=== PATIENT | female | born 1930 | race Caucasian/White ===

== ENCOUNTER 2016-08-08 10:26 | Emergency (ER) | payer MEDICARE, OTHER ==
[~2016-08-08] VITALS: Wt 64.0 kg
[~2016-08-08 10:26] MED LIST: AMLO-147 PO; ASPI-535 PO; CRES10 PO; FURO40TA4 PO; GLU5XL PO; LINA5TAB PO; LOSA100T7 PO; OMEP20CA16 PO; SPIR100T31 PO
[2016-08-08] MEDS ORDERED: ACETAMINOPHEN 500 MG TAB PO STA (10:54)
[2016-08-08] MEDS ORDERED: METO25TA7 PO (11:59)
[2016-08-08] MEDS ORDERED: HYDR12.58 PO (11:59)
[2016-08-08] MEDS ORDERED: METF1000 PO (11:59)
[2016-08-08] MEDS ORDERED: GABA300C16 PO (12:00)
--- NOTE | 2016-08-08 12:47 | RADRPT ---
PROCEDURE: Chest x-ray CLINICAL INDICATION: Fall with pain TECHNIQUE: Chest single view COMPARISON: 02/22/2014 FINDINGS: As before there is left chest dual lead pacemaker. Heart is normal in size. Stable atherosclerotic aortic calcification. The pulmonary vessels are normal in caliber. The lungs are clear. The cost ophrenic angles are sharp. The visualized bony thorax is unremarkable. IMPRESSION: No acute cardiopulmonary disease. No evidence of pneumothorax Atherosclerotic aortic calcification Pacemaker RPTAT: HH .Timothy Saez MD, Date Time Electronically viewed and signed by .Timothy Saez MD, on 08/08/2016 12:47 .W/
--- NOTE | 2016-08-08 12:48 | RADRPT ---
PROCEDURE: XR Ribs. CLINICAL INDICATION: Pain TECHNIQUE: Multiple oblique views of the left ribs were obtained. The images were reviewed on a [employer] workstation. COMPARISON: None. FINDINGS: Rib series demonstrates no displaced rib fracture. No pneumothorax is seen. The underlying lung is clear. IMPRESSION: No displaced rib fracture identified RPTAT: HH .Timothy Saez MD, Date Time Electronically viewed and signed by .Timothy Saez MD, MD on 08/08/2016 12:48 .W/
[2016-08-08 13:13] VITALS: BP 155/68; PULSE 68; RESP 18
--- NOTE | 2016-08-08 13:50 | ERD ---
ER Documentation Chief Complaint Date/Time DATE: 08/08/16 TIME: 13:47 Chief Complaint LEFT RIB PAIN S/P GLF LAST NIGHT, NO KO HPI 86-year-old female presenting with left-sided rib pain. She had a fall last night after losing balance due to pain in her ankle. She denies any associated dizziness, nausea, vomiting, chest pain or shortness of breath. She had no head trauma or loss of consciousness. She has not had any difficulty breathing. Her pain is on the left side, worse with taking a deep breath, better when she does not move. It is a 6 out of 10, nonradiating. She denies any other injuries or pain. She has not taken anything for the pain at home. ROS All systems reviewed and are negative except as per history of present illness. Medications Home Meds Reported Medications Gabapentin* (Gabapentin*) 300 Mg Capsule, 300 MG PO BID, #60 CAP 08/08/16 Metoprolol Succinate* (Toprol XL*) 25 Mg Tab.sr.24h, 25 MG PO DAILY, #30 TAB 08/08/16 Metformin Hcl* (Metformin Hcl*) 1,000 Mg Tablet, 1000 MG PO WITH BREAKFAST DINNE , #30 TAB 08/08/16 Hydrochlorothiazide* (Hydrochlorothiazide*) 12.5 Mg Tablet, 12.5 MG PO DAILY, # 30 TAB 08/08/16 Aspirin Ec (Aspir 81) 81 Mg Tablet.dr, 81 MG PO DAILY, TAB 02/21/14 Amlodipine Besylate* (Amlodipine Besylate*) 10 Mg Tablet, 10 MG PO DAILY, TAB 02/21/14 Losartan Potassium* (Losartan Potassium*) 100 Mg Tablet, 100 MG PO DAILY, TAB 02/21/14 Linagliptin (TRADJENTA) 5 Mg Tablet, 5 MG PO AC BREAKFAST 02/21/14 Glipizide XL* (Glipizide XL*) 5 Mg Tabsr, 5 MG PO DAILY, TAB 02/21/14 Discontinued Reported Medications Rosuvastatin Calcium* (Crestor*) 10 Mg Tablet, 10 MG PO HS, TAB 02/21/14 Omeprazole* (Omeprazole*) 20 Mg Capsule.dr, 20 MG PO DAILY, CAP 02/21/14 Spironolactone* (Spironolactone*) 100 Mg Tablet, 100 MG PO DAILY, TAB 02/21/14 Furosemide* (Furosemide*) 40 Mg Tablet, 40 MG PO DAILY, TAB 02/21/14 Allergies Allergies: Coded Allergies: No Known Allergies (Verified Allergy, Unknown, 08/08/16) PMhx/Soc History of Surgery: Yes (PACEMAKER) Anesthesia Reaction: No Hx Neurological Disorder: No Hx Respiratory Disorders: No Hx Cardiac Disorders: Yes (HTN) Hx Psychiatric Problems: No Hx Miscellaneous Medical Probl: Yes (DM) Hx Alcohol Use: No Hx Substance Use: No Hx Tobacco Use: No Smoking Status: Never smoker FmHx Family History: No diabetes Physical Exam Vitals Vital Signs Date Time Temp Pulse Resp B/P Pulse Ox O2 Delivery O2 Flow Rate FiO2 08/08/16 13:13 68 18 155/68 97 Room Air 08/08/16 10:40 79 18 189/71 98 Room Air 08/08/16 10:28 98.4 79 18 194/91 99 Physical Exam Const: Well-appearing, no apparent distress Head: Atraumatic Eyes: Normal Conjunctiva ENT: Normal External Ears, Nose and Mouth. Neck: Full range of motion..~ No meningismus. No C-spine tenderness palpation Chest: No crepitus. No bruising. No flail chest. There is tenderness to palpation of the left lower ribs laterally Resp: Clear to auscultation bilaterally Cardio: Regular rate and rhythm, no murmurs Abd: Soft, non tender, non distended. Normal bowel sounds Skin: No petechiae or rashes Back: No midline or flank tenderness Ext: No cyanosis, or edema Neur: Awake and alert Psych: Normal Mood and Affect Results 24 hrs Current Medications Medications (Trade) Dose Ordered Sig/[place] Route PRN Reason Start Time Stop Time Status Last Admin Dose Admin Acetaminophen (Tylenol Tab) 1,000 mg ONCE STAT PO 08/08/16 10:54 08/08/16 10:57 DC 08/08/16 11:04 Procedures/MDM EMERGENT LABS AND DIAGNOSTIC STUDIES: Radiology Results as interpreted by Radiology below were reviewed by Ayan Quinones MD: Chest x-ray does not show any acute abnormalities X-ray of the left ribs does not show any acute fracture Initial Nursing notes reviewed. Previous Medical Records requested via the Electronic Health Record. EMERGENCY DEPARTMENT COURSE / MEDICAL DECISION MAKING: Patient is presenting with left-sided rib pain after a ground-level mechanical fall. Her vitals are stable. She does not have any respiratory distress. X- rays were done and did not show any obvious fractures. Tylenol was given for pain with improvement. I discussed with the patient and her family the importance of pain control and the risk of developing pneumonia if her pain is not controlled well. Follow-up with PMD was recommended. Patient was discharged in stable condition Departure Diagnosis: Primary Impression: Rib injury Condition: Stable Patient Instructions: Rib Contusion Referrals: CONCETTA JOAQUIN MD (PCP) JONO QUINONES MD August 08, 2016 13:50
== END 2016-08-08 13:43 | disposition home or self-care (01) ==
LOC: E/R 10:26
DX: S29.9XXA Unspecified injury of thorax, initial encounter (principal); I10 Essential (primary) hypertension; E11.9 Type 2 diabetes mellitus without complications; W18.39XA Other fall on same level, initial encounter; Y92.9 Unspecified place or not applicable; Z79.84 Long term (current) use of oral hypoglycemic drugs; Z95.0 Presence of cardiac pacemaker; Z79.82 Long term (current) use of aspirin
CPT/HCPCS: 71010; 71100

== ENCOUNTER 2017-03-14 23:55 | Emergency (ER) | END 2017-03-15 06:45 | disposition home or self-care (01) ==